=== PATIENT | male | born 1930 | race Caucasian/White ===

== ENCOUNTER 2017-03-21 11:34 | Day surgery (SDC) | payer MEDICARE, BC ==
[~2017-03-21] VITALS: Ht 170.2 cm; Wt 80.9 kg
[2017-03-21 11:50] VITALS: BP 128/75
[2017-03-21] MEDS ORDERED: CINN1CAP PO (12:08)
[2017-03-21] MEDS ORDERED: PYRI100T2 PO (12:08)
[2017-03-21] MEDS ORDERED: VITA100C8 PO (12:08)
[2017-03-21] MEDS ORDERED: RIVA20TA PO (12:08)
[2017-03-21] MEDS ORDERED: CHOL5000 PO (12:08)
[2017-03-21] MEDS ORDERED: ASCO500T8 PO (12:08)
[2017-03-21] MEDS ORDERED: DIGO250T PO (12:08)
[2017-03-21] MEDS ORDERED: OMEG-14 PO (12:08)
[2017-03-21] MEDS ORDERED: CYAN2000 PO (12:08)
[2017-03-21] MEDS ORDERED: VITA1TAB19 PO (12:08)
[2017-03-21] MEDS ORDERED: FOLI0.8T2 PO (12:08)
[2017-03-21] MEDS ORDERED: MULT-464 PO (12:08)
[2017-03-21] MEDS ORDERED: MAGN400T36 PO (12:08)
[2017-03-21] MEDS ORDERED: ZINC50TA3 PO (12:08)
[2017-03-21] MEDS ORDERED: POTA99TA2 PO (12:08)
[2017-03-21] MEDS ORDERED: UBID100C41 PO (12:08)
[2017-03-21 12:34] LABS: WHITE BLOOD COUNT 7.7 x10^3/uL (3.4-10)
[2017-03-21 12:47] LABS: ASPARTATE AMINO TRANSFERASE 32 U/L (15-37); BLOOD UREA NITROGEN 17 mg/dL (7-18)
[2017-03-21] MEDS ORDERED: LIDOCAINE 2%, 20ML ONE (13:35)
[2017-03-21] MEDS ORDERED: MIDAZOLAM 1 MG/ML, 5ML ONE (13:35)
[2017-03-21] MEDS ORDERED: FENTANYL PF 100 MCG/2ML ONE (13:35)
[2017-03-21] MEDS ORDERED: VERAPAMIL 2.5 MG/ML, 2ML ONE (13:35)
[2017-03-21] MEDS ORDERED: HEPARIN 1,000 UNITS/ML, 10ML ONE (13:35)
[2017-03-21] MEDS ORDERED: TICAGRELOR 90 MG TABLET ONE (13:35)
[2017-03-21] MEDS ORDERED: BIVALIRUDIN 250 MG ONE (13:35)
[2017-03-21] MEDS ORDERED: SODIUM CHLORIDE 0.9% 1,000 ML IV SCH (14:39)
== END 2017-03-21 14:56 | disposition home or self-care (01) ==
LOC: CACL 11:34
PROVIDERS: ATTEND Internal Medicine Cardiovascular Disease
DX: I25.10 Atherosclerotic heart disease of native coronary artery without angina pectoris (principal); I48.91 Unspecified atrial fibrillation
CPT/HCPCS: 36415; 80053; 85025; 85610; 85730; 93454; 99156; 99157; C1769; C1894; J1644; J2250; J3010; J3490; Q9967; J0583

== ENCOUNTER 2017-04-07 11:26 | Observation (INO) | payer MEDICARE, BC ==
[2017-04-06 11:23] VITALS: BP 144/76
[2017-04-06 11:54] LABS: HEMATOCRIT 44.9 % (39.2-51.8); HEMOGLOBIN 14.9 g/dL (13.7-18.0); WHITE BLOOD COUNT 8.2 x10^3/uL (3.4-10)
[2017-04-06 13:17] LABS: BLOOD UREA NITROGEN 20 mg/dL (7-18)
[~2017-04-07] VITALS: Ht 170.2 cm; Wt 78.1 kg
[~2017-04-07 11:26] MED LIST: ASCO500T8 PO; CHOL5000 PO; CINN1CAP PO; CYAN2000 PO; DIGO250T PO; FOLI0.8T2 PO; MAGN400T36 PO; MULT-464 PO; OMEG-14 PO; POTA99TA2 PO; PYRI100T2 PO; RIVA20TA PO; UBID100C41 PO; VITA100C8 PO; VITA1TAB19 PO; ZINC50TA3 PO
[2017-04-07] MEDS ORDERED: SODIUM CHLORIDE 0.9% 1,000 ML IV ONE (11:44)
[2017-04-07] MEDS ORDERED: MIDAZOLAM 1 MG/ML, 5ML ONE (13:08)
[2017-04-07] MEDS ORDERED: FENTANYL PF 100 MCG/2ML ONE (13:08)
[2017-04-07] MEDS ORDERED: NITROGLYCERIN 5 MG/ML, 10ML ONE (13:09)
[2017-04-07] MEDS ORDERED: VERAPAMIL 2.5 MG/ML, 2ML ONE (13:09)
[2017-04-07] MEDS ORDERED: BIVALIRUDIN 250 MG ONE (13:09)
[2017-04-07] MEDS ORDERED: HEPARIN 1,000 UNITS/ML, 10ML ONE (13:09)
[2017-04-07] MEDS ORDERED: LIDOCAINE 2%, 20ML ONE (13:09)
[2017-04-07] MEDS ORDERED: TICAGRELOR 90 MG TABLET ONE (13:09)
[2017-04-07] MEDS ORDERED: SODIUM CHLORIDE 0.9% 1,000 ML IV SCH (14:19)
[2017-04-07] MEDS ORDERED: TICA90TA PO (14:26)
[2017-04-07 18:26] VITALS: BP 131/74
[2017-04-07] MEDS: TICAGRELOR 90 MG TABLET PO SCH (20:45)
[2017-04-07] MEDS ORDERED: DIGOXIN 0.25 MG TABLET PO SCH (21:00)
[2017-04-07] MEDS ORDERED: RIVAROXABAN 20 MG TABLET PO SCH (21:00)
[2017-04-08 00:24] VITALS: BP 136/71
[2017-04-08 07:53] VITALS: BP 137/77
[2017-04-08] MEDS: TICAGRELOR 90 MG TABLET PO SCH (09:57)
== END 2017-04-08 11:29 | disposition home or self-care (01) ==
LOC: CACL 11:26 → 5SO 17:00 → CACL 17:33 → 5SO 17:33 → DCLOUNGE 04-08 11:04
PROVIDERS: ADMIT Internal Medicine Cardiovascular Disease; ATTEND Internal Medicine Cardiovascular Disease
DX: I25.10 Atherosclerotic heart disease of native coronary artery without angina pectoris (principal); I10 Essential (primary) hypertension; I48.91 Unspecified atrial fibrillation; R06.02 Shortness of breath
CPT/HCPCS: 36415; 80048; 85025; 93454; 99156; 99157; C1725; C1769; C1874; C1887; C1894; C9600; C9601; G0378; J0583; J1644; J2250; J3010; J3490; Q9967

== ENCOUNTER → 2017-07-04 | Outpatient (CLI) | payer MEDICARE, BC ==
[~2017-07-04] MED LIST changes: +ACET325T14 PO; +CLOP75TA PO; +TICA90TA PO
== END ==
LOC: CFH 07:54
PROVIDERS: ATTEND Internal Medicine Cardiovascular Disease
DX: I08.1 Rheumatic disorders of both mitral and tricuspid valves (principal); I10 Essential (primary) hypertension; I48.91 Unspecified atrial fibrillation; Q21.1 Atrial septal defect
CPT/HCPCS: 93306

== ENCOUNTER 2017-09-27 13:39 | Inpatient (IN) | payer MEDICARE, BC ==
[~2017-09-27] VITALS: Ht 172.7 cm; Wt 78.8 kg
[2017-09-27 14:23] LABS: BASOPHILS # (AUTO) 0.02 x10^3/uL (0-0.1); BASOPHILS % (AUTO) 0 % (0-1); EOSINOPHILS # (AUTO) 0.06 x10^3/uL (0-0.4); EOSINOPHILS % (AUTO) 1 % (1-7); LYMPHOCYTES # (AUTO) 1.04 x10^3/uL (1-3.4); LYMPHOCYTES % (AUTO) 13 % (22-44); MD NO; MEAN CORPUSCULAR HEMOGLOBIN 32.2 pg (27.5-34.5); MEAN CORPUSCULAR HGB CONC 33.1 g/dL (33.2-36.2); MEAN CORPUSCULAR VOLUME 97.2 fL (81-97); MEAN PLATELET VOLUME 7.2 fL (7.4-10.4); MONOCYTES # (AUTO) 0.75 x10^3/uL (0.2-0.8); MONOCYTES % (AUTO) 9 % (2-9); NEUTROPHILS # (AUTO) 6.47 x10^3/uL (1.8-6.8); NEUTROPHILS % (AUTO) 78 % (42-75); PLATELET COUNT 217 x10^3/uL (130-400); RED BLOOD COUNT 4.27 x10^6/uL (4.38-5.82); RED CELL DISTRIBUTION WIDTH 14.5 % (9.4-14.8)
[2017-09-27 14:36] LABS: ALBUMIN 3.8 g/dL (3.4-5.0); ANION GAP 6 mmol/L (5-15); CALCIUM 9.2 mg/dL (8.5-10.1); CHLORIDE 105 mmol/L (98-107); CREATININE 0.93 mg/dL (0.7-1.3)
[2017-09-27 14:48] LABS: TROPONIN I 0.532 ng/mL (0.000-0.045)
[2017-09-27] MEDS ORDERED: SODIUM CHLORIDE FLUSH 10ML SYR IVF ONE (15:30)
[2017-09-27 15:49] LABS: INTERNATIONAL NORMALIZED RATIO 1.23 (0.93-1.1); PROTHROMBIN TIME 12.6 Seconds (9.6-11.5)
[2017-09-27] MEDS ORDERED: hydrALAzine 20 MG/ML, 1ML IVPush PRN (16:00)
[2017-09-27] MEDS ORDERED: ACETAMINOPHEN 325 MG TABLET PO PRN (16:00)
[2017-09-27 17:33] VITALS: BP 128/73
[2017-09-27 18:09] LABS: TROPONIN I 0.512 ng/mL (0.000-0.045)
[2017-09-27 18:39] VITALS: BP 118/72
[2017-09-27] MEDS ORDERED: RIVAROXABAN 20 MG TABLET PO SCH (21:00)
[2017-09-27] MEDS ORDERED: DIGOXIN 0.25 MG TABLET PO SCH (21:00)
[2017-09-27] MEDS: OMEGA-3/FISH OIL CAPSULE PO SCH (21:00)
[2017-09-27] MEDS ORDERED: MAGNESIUM OXIDE 400 MG TABLET PO SCH (21:00)
[2017-09-27 22:50] LABS: TROPONIN I 0.487 ng/mL (0.000-0.045)
[2017-09-28] VITALS (8 sets, daily range): BP systolic 114–150; BP diastolic 54–80
[2017-09-28 05:53] LABS: BASOPHILS # (AUTO) 0.04 x10^3/uL (0-0.1); BASOPHILS % (AUTO) 1 % (0-1); EOSINOPHILS # (AUTO) 0.14 x10^3/uL (0-0.4); EOSINOPHILS % (AUTO) 2 % (1-7); LYMPHOCYTES # (AUTO) 1.38 x10^3/uL (1-3.4); LYMPHOCYTES % (AUTO) 18 % (22-44); MD NO; MEAN CORPUSCULAR HEMOGLOBIN 32.1 pg (27.5-34.5); MEAN CORPUSCULAR HGB CONC 33.5 g/dL (33.2-36.2); MEAN CORPUSCULAR VOLUME 95.8 fL (81-97); MEAN PLATELET VOLUME 7.2 fL (7.4-10.4); MONOCYTES # (AUTO) 0.88 x10^3/uL (0.2-0.8); MONOCYTES % (AUTO) 12 % (2-9); NEUTROPHILS # (AUTO) 5.05 x10^3/uL (1.8-6.8); NEUTROPHILS % (AUTO) 68 % (42-75); PLATELET COUNT 191 x10^3/uL (130-400); RED BLOOD COUNT 3.97 x10^6/uL (4.38-5.82); RED CELL DISTRIBUTION WIDTH 14.7 % (9.4-14.8)
[2017-09-28 06:04] LABS: ANION GAP 6 mmol/L (5-15); CALCIUM 8.4 mg/dL (8.5-10.1); CHLORIDE 107 mmol/L (98-107)
[2017-09-28 06:33] LABS: CHOL/HDL RATIO 4.2; CHOLESTEROL, TOTAL 152 mg/dL (140-239); CREATININE 0.89 mg/dL (0.7-1.3); HDL CHOL % 24 % (26-37); HDL CHOLESTEROL (DIRECT) 36 mg/dL (40-60); LDL CHOLESTEROL,CALCULATED 105 mg/dL (54-169); LDL/HDL RATIO 2.9 (0.5-3.0); TRIGLYCERIDES 57 mg/dL (50-200); VLDL CHOLESTEROL 11 mg/dL (0-25)
[2017-09-28 06:34] LABS: FOLATE LEVEL > 20.0 ng/mL (3.1-17.5)
[2017-09-28] MEDS ORDERED: VITAMIN E 400 UNITS CAPSULE PO SCH (09:00)
[2017-09-28] MEDS ORDERED: TEMPLATE NON-FORMULARY MED. (Ubidecarenone** (Co Q-10**) 300 MG) PO SCH (09:00)
[2017-09-28] MEDS ORDERED: ZINC SULFATE 220 MG TAB PO SCH (09:00)
[2017-09-28] MEDS ORDERED: FUROSEMIDE 20 MG/2 ML IV SCH (09:00)
[2017-09-28] MEDS ORDERED: ASCORBIC ACID 500 MG TABLET PO SCH (09:00)
[2017-09-28] MEDS ORDERED: FOLIC ACID 1 MG TABLET PO SCH (09:00)
[2017-09-28] MEDS ORDERED: MULTIVITS,STRESS FORMULA 1 TABLET PO SCH (09:00)
[2017-09-28] MEDS ORDERED: MULTIVITAMINS/MINERALS TABLET PO SCH (09:00)
[2017-09-28] MEDS ORDERED: CYANOCOBALAMIN 1,000 MCG TABLET PO SCH (09:00)
[2017-09-28] MEDS ORDERED: PYRIDOXINE 50MG TABLET PO SCH (09:00)
[2017-09-28] MEDS ORDERED: CHOLECALCIFEROL 1,000 UNIT TABLET PO SCH (09:00)
[2017-09-28] MEDS ORDERED: TEMPLATE NON-FORMULARY MED. (Vitamin B Complex** (B Complex**) 1 TAB) PO SCH (09:00)
[2017-09-28] MEDS: OMEGA-3/FISH OIL CAPSULE PO SCH (10:12)
== END 2017-09-28 18:30 | disposition home or self-care (01) | DRG 73 ==
LOC: ED 15:05 → EDIP 15:06 → ED 16:20 → UNDOADMIN 16:28 → EDIP 16:28 → 5SO 17:06
PROVIDERS: ADMIT Hospitalist; ATTEND Hospitalist
DX: G90.9 Disorder of the autonomic nervous system, unspecified (principal); I50.31 Acute diastolic (congestive) heart failure; I48.92 Unspecified atrial flutter; I11.0 Hypertensive heart disease with heart failure; D75.89 Other specified diseases of blood and blood-forming organs; I48.2 Chronic atrial fibrillation; I35.0 Nonrheumatic aortic (valve) stenosis; E03.9 Hypothyroidism, unspecified; I25.10 Atherosclerotic heart disease of native coronary artery without angina pectoris; I71.4 Abdominal aortic aneurysm, without rupture; R74.8 Abnormal levels of other serum enzymes; Z79.01 Long term (current) use of anticoagulants; Z82.49 Family history of ischemic heart disease and other diseases of the circulatory system; Z87.891 Personal history of nicotine dependence; Z95.2 Presence of prosthetic heart valve; Z90.49 Acquired absence of other specified parts of digestive tract
CPT/HCPCS: 36415; 70450; 71045; 80048; 80061; 80162; 82040; 82607; 82746; 83880; 84439; 84443; 84484; 85025; 85610; 93005; 93306; 99285

== ENCOUNTER → 2017-11-03 | Outpatient (CLI) | payer MEDICARE, BC | END | disposition home or self-care (01) | LOC: CVU 12:46 | PROVIDERS: ATTEND Internal Medicine Cardiovascular Disease | DX: I65.23 Occlusion and stenosis of bilateral carotid arteries (principal); I27.20 Pulmonary hypertension, unspecified; I48.91 Unspecified atrial fibrillation; R42 Dizziness and giddiness | CPT/HCPCS: 93880 ==

== ENCOUNTER 2017-12-07 14:38 | Inpatient (IN) | payer MEDICARE, BC ==
[~2017-12-07] VITALS: Ht 172.7 cm; Wt 85.2 kg
[2017-12-07 14:54] LABS: BASOPHILS # (AUTO) 0.03 x10^3/uL (0-0.1); BASOPHILS % (AUTO) 0 % (0-1); EOSINOPHILS # (AUTO) 0.14 x10^3/uL (0-0.4); EOSINOPHILS % (AUTO) 2 % (1-7); LYMPHOCYTES # (AUTO) 1.45 x10^3/uL (1-3.4); LYMPHOCYTES % (AUTO) 17 % (22-44); MD NO; MEAN CORPUSCULAR HEMOGLOBIN 32.3 pg (27.5-34.5); MEAN CORPUSCULAR HGB CONC 33.8 g/dL (33.2-36.2); MEAN CORPUSCULAR VOLUME 95.6 fL (81-97); MEAN PLATELET VOLUME 7.5 fL (7.4-10.4); MONOCYTES # (AUTO) 0.79 x10^3/uL (0.2-0.8); MONOCYTES % (AUTO) 9 % (2-9); NEUTROPHILS # (AUTO) 6.15 x10^3/uL (1.8-6.8); NEUTROPHILS % (AUTO) 72 % (42-75); PLATELET COUNT 207 x10^3/uL (130-400); RED BLOOD COUNT 4.27 x10^6/uL (4.38-5.82); RED CELL DISTRIBUTION WIDTH 14.8 % (9.4-14.8)
[2017-12-07] MEDS ORDERED: ONDANSETRON 2MG/ML, 2ML IV PRN (15:00)
[2017-12-07] MEDS ORDERED: ACETAMINOPHEN 650 MG/20.3 ML UDC PO PRN (15:00)
[2017-12-07] MEDS ORDERED: CEFAZOLIN PMX 1GM/50ML 50 ML IVPB ONE (15:00)
[2017-12-07] MEDS ORDERED: BISACODYL 10 MG SUPP PR PRN (15:00)
[2017-12-07 15:07] LABS: ALBUMIN 3.7 g/dL (3.4-5.0); ANION GAP 6 mmol/L (5-15); CALCIUM 8.8 mg/dL (8.5-10.1); CHLORIDE 109 mmol/L (98-107); CREATININE 0.81 mg/dL (0.7-1.3); INTERNATIONAL NORMALIZED RATIO 1.11 (0.93-1.1); PROTHROMBIN TIME 11.5 Seconds (9.6-11.5)
[2017-12-07 15:12] LABS: FREE T4 (FREE THYROXINE) 0.96 ng/dL (0.76-1.46); TROPONIN I 0.056 ng/mL (0.000-0.045)
[2017-12-07] MEDS ORDERED: ATROPINE SYRINGE 0.1 MG/ML, 10ML ONE (15:18)
[2017-12-07 17:25] VITALS: BP 140/71
[2017-12-07 18:59] VITALS: BP 122/69
[2017-12-07] MEDS: SODIUM CHLORIDE 0.9% 1,000 ML IV SCH ×2 (19:33→21:45)
[2017-12-07] MEDS: SODIUM CHLORIDE FLUSH 10ML SYR IVF SCH (19:37)
[2017-12-07 22:07] LABS: TROPONIN I 0.067 ng/mL (0.000-0.045)
[2017-12-08] MEDS: SODIUM CHLORIDE 0.9% 1,000 ML IV SCH ×5 (00:53→23:55)
[2017-12-08 01:23] VITALS: BP 103/58
[2017-12-08 06:46] VITALS: BP 119/71
[2017-12-08] MEDS ORDERED: MIDAZOLAM 1 MG/ML, 2ML ONE (07:36)
[2017-12-08] MEDS ORDERED: FENTANYL PF 100 MCG/2ML ONE (07:36)
[2017-12-08] MEDS ORDERED: LIDOCAINE 2%, 50ML ONE (07:37)
[2017-12-08] MEDS ORDERED: CEFAZOLIN 1,000 MG ONE (07:37)
[2017-12-08] MEDS ORDERED: CEFAZOLIN PMX 1GM/50ML 50 ML ONE (07:37)
[2017-12-08] MEDS ORDERED: ACETAMINOPHEN 325 MG TABLET PO PRN (09:00)
[2017-12-08] MEDS ORDERED: HOLD MEDICATION MC PRN (09:00)
[2017-12-08] MEDS: SODIUM CHLORIDE FLUSH 10ML SYR IVF SCH ×4 (09:50→19:47)
[2017-12-08 14:10] VITALS: BP 138/78
[2017-12-08] MEDS: CEFAZOLIN PMX 1GM/50ML 50 ML IVPB SCH (15:57)
[2017-12-08 20:00] VITALS: BP 147/78
[2017-12-09] MEDS: CEFAZOLIN PMX 1GM/50ML 50 ML IVPB SCH (00:05)
[2017-12-09 01:19] VITALS: BP 150/76
[2017-12-09] MEDS: SODIUM CHLORIDE 0.9% 1,000 ML IV SCH (08:06)
[2017-12-09 09:04] VITALS: BP 151/78
[2017-12-09] MEDS: SODIUM CHLORIDE FLUSH 10ML SYR IVF SCH ×2 (09:07)
[2017-12-09] MEDS ORDERED: CLOP75TA52 PO (12:14)
== END 2017-12-09 13:40 | disposition home or self-care (01) | DRG 242 ==
LOC: ED 14:44 → EDIP 14:58 → 5SO 17:19 → DCLOUNGE 12-09 12:31
PROVIDERS: ADMIT Internal Medicine Cardiovascular Disease; ATTEND Internal Medicine Cardiovascular Disease
PROC: 0JH604Z Insertion of Pacemaker, Single Chamber into Chest Subcutaneous Tissue and Fascia, Open Approach (ICD-10-PCS; principal; 2017-12-08)
PROC: 02HK3JZ Insertion of Pacemaker Lead into Right Ventricle, Percutaneous Approach (ICD-10-PCS; 2017-12-08)
DX: R00.1 Bradycardia, unspecified (principal); I21.A1 Myocardial infarction type 2; D68.69 Other thrombophilia; I48.2 Chronic atrial fibrillation; D64.9 Anemia, unspecified; I25.10 Atherosclerotic heart disease of native coronary artery without angina pectoris; I10 Essential (primary) hypertension; I27.20 Pulmonary hypertension, unspecified; R19.5 Other fecal abnormalities; I34.0 Nonrheumatic mitral (valve) insufficiency; E78.5 Hyperlipidemia, unspecified; Z95.2 Presence of prosthetic heart valve; Z79.01 Long term (current) use of anticoagulants; Z90.49 Acquired absence of other specified parts of digestive tract; Z87.891 Personal history of nicotine dependence; Z88.6 Allergy status to analgesic agent
CPT/HCPCS: 33207; 36415; 71045; 80047; 80048; 82040; 84439; 84443; 84484; 85025; 85610; 85730; 93005; 99156; 99157; 99285; C1769; C1779; C1786; C1892; G0378; J0690; J2250; J3010; J7030